=== PATIENT | male | born 1980 | race Caucasian/White ===

== ENCOUNTER → 2021-02-03 | Outpatient (CLI) | payer BC ==
[~2021-02-03] VITALS: Ht 162.6 cm; Wt 66.9 kg
[2021-02-03 09:31] VITALS: BP 150/91; PULSE 65; TEMP 98.1
[2021-02-03 10:25] VITALS: BP 147/97; PULSE 64
== END ==
LOC: COL.RAD 09:00
DX: C85.90 Non-Hodgkin lymphoma, unspecified, unspecified site (principal)
CPT/HCPCS: 32108